=== PATIENT | male | born 1965 | race Caucasian/White ===

== ENCOUNTER 2018-12-30 | Outpatient (CLI) | payer BC | END 2018-12-30 23:59 | disposition home or self-care (01) | DX: I10 Essential (primary) hypertension (principal); R79.89 Other specified abnormal findings of blood chemistry; Z12.5 Encounter for screening for malignant neoplasm of prostate | CPT/HCPCS: 36415; 80053; 84153 ==

== ENCOUNTER 2019-01-01 | Outpatient (CLI) | payer BC | END 2019-01-01 23:59 | disposition home or self-care (01) | DX: R79.89 Other specified abnormal findings of blood chemistry (principal) | CPT/HCPCS: 36415; 80074 ==

== ENCOUNTER 2019-01-06 07:45 | Outpatient (CLI) | payer BC ==
--- NOTE | 2019-01-06 17:00 | Ultrasound Report ---
Reason: ELEVATED LFT'S Procedure Date: 01/06/2019 Accession Number: [id number] / [id number] Procedure: US - Abdomen Limited CPT Code: FULL RESULT: EXAM: ABDOMEN ULTRASOUND LIMITED, RUQ EXAM DATE: 01/06/2019 08:21 AM. CLINICAL HISTORY: Elevated LFTs. COMPARISON: CT 04/20/2012. TECHNIQUE: Real-time scanning was performed with static images obtained. FINDINGS: Liver: The liver parenchyma is moderately echogenic diffusely. A right hepatic calcification measures 1.2 cm as before. No enlargement. The right lobe measures 14.9 cm. Main portal vein flow: Hepatopetal. Gallbladder: Normal. No stones, wall thickening, or sonographic Godinez's sign. Biliary System: CBD measures 4 mm. No intrahepatic or extrahepatic ductal dilatation. Other: The right kidney measures 11.9 cm and shows no calculi or hydronephrosis. No ascites. IMPRESSION: 1. Moderately fatty infiltrated liver. 2. No change in 1.2 cm hepatic calcification, likely granuloma. 3. Normal gallbladder. RADIA
== END 2019-01-06 07:46 | disposition home or self-care (01) ==
LOC: DI 07:45
PROVIDERS: ATTEND Family Medicine
DX: K76.0 Fatty (change of) liver, not elsewhere classified (principal); K76.89 Other specified diseases of liver
CPT/HCPCS: 76705

== ENCOUNTER 2020-02-24 10:11 | Outpatient (CLI) | payer BC ==
[2020-02-24 11:50] LABS: BASOPHILS % (AUTO) 0.5 %; EOSINOPHILS # (AUTO) 0.1 10^3/uL (0.0-0.7); EOSINOPHILS % (AUTO) 1.7 %; HGB - HEMOGLOBIN 15.3 g/dL (14.0-18.0); LYMPHOCYTES # (AUTO) 1.1 10^3/uL (1.5-3.5); LYMPHOCYTES % (AUTO) 18.8 %; MEAN CORPUSCULAR HEMOGLOBIN 30.5 pg (27.0-31.0); MEAN CORPUSCULAR HGB CONC 34.2 g/dL (32.0-36.0); MEAN CORPUSCULAR VOLUME 89.2 fL (80.0-94.0); MEAN PLATELET VOLUME 11.2 fL (7.4-11.4); MONOCYTES # (AUTO) 0.5 10^3/uL (0.0-1.0); MONOCYTES % (AUTO) 8.3 %; NEUTROPHILS # (AUTO) 4.1 10^3/uL (1.5-6.6); NEUTROPHILS % (AUTO) 69.9 %; PLT - PLATELET COUNT 205 10^3/uL (130-450); RED BLOOD COUNT 5.01 10^6/uL (4.70-6.10); RED CELL DISTRIBUTION WIDTH 13.2 % (12.0-15.0); WHITE BLOOD COUNT 5.9 x10^3/uL (4.8-10.8)
[2020-02-24 12:14] LABS: ALBUMIN 4.3 g/dL (3.2-5.5); ALBUMIN/GLOBULIN RATIO 1.4 (1.0-2.2); ALKALINE PHOSPHATASE 71 IU/L (42-121); ALT ALANINE AMINOTRANSFERASE 17 IU/L (10-60); AST ASPARTATE AMINOTRANSFERASE 18 IU/L (10-42); BILIRUBIN,TOTAL 0.8 mg/dL (0.2-1.0); BUN - BLOOD UREA NITROGEN 16 mg/dL (6-20); CALCIUM 9.2 mg/dL (8.5-10.3); CARBON DIOXIDE - CO2 26 mmol/L (21-32); CHLORIDE 103 mmol/L (101-111); CHOL/HDL RATIO 4.4 (<5.0); CHOLESTEROL 214 mg/dL; CREATININE 0.8 mg/dL (0.6-1.2); GLUCOSE 110 mg/dL (70-100); HDL CHOLESTEROL 49 mg/dL; LDL CHOLESTEROL,CALCULATED 152 mg/dL; LDL/HDL RATIO 3.1 (<3.6); SODIUM 136 mmol/L (135-145); TOTAL PROTEIN 7.4 g/dL (6.7-8.2); VLDL CHOLESTEROL 13 mg/dL
[2020-02-24 12:39] LABS: HEMOGLOBIN A1c% 5.2 % (4.27-6.07)
== END 2020-02-24 23:59 | disposition home or self-care (01) ==
LOC: LAB.WCP 10:11
PROVIDERS: ATTEND Family Medicine
DX: R79.89 Other specified abnormal findings of blood chemistry (principal); R73.9 Hyperglycemia, unspecified; N40.0 Benign prostatic hyperplasia without lower urinary tract symptoms; I10 Essential (primary) hypertension; Z12.5 Encounter for screening for malignant neoplasm of prostate
CPT/HCPCS: 36415; 80053; 80061; 83036; 83721; 84153; 84443; 85025

== ENCOUNTER 2020-08-14 09:16 | Outpatient (CLI) | payer BC ==
[2020-08-14 14:40] LABS: BUN - BLOOD UREA NITROGEN 18 mg/dL (6-20); CALCIUM 9.5 mg/dL (8.5-10.3); CARBON DIOXIDE - CO2 25 mmol/L (21-32); CHLORIDE 103 mmol/L (101-111); CREATININE 0.8 mg/dL (0.6-1.2); GFR - MDRD 100 (>89); GLUCOSE 109 mg/dL (70-100); POTASSIUM 3.9 mmol/L (3.5-5.0); SODIUM 137 mmol/L (135-145)
[2020-08-14 14:41] LABS: CRP - C-REACTIVE PROTEIN < 1.0 mg/dL (0-1.0)
[2020-08-14 14:52] LABS: HCT - HEMATOCRIT 47.4 % (42.0-52.0); HGB - HEMOGLOBIN 16.1 g/dL (14.0-18.0); MEAN CORPUSCULAR HEMOGLOBIN 31.2 pg (27.0-31.0); MEAN CORPUSCULAR VOLUME 91.9 fL (80.0-94.0); MEAN PLATELET VOLUME 11.4 fL (7.4-11.4); RED BLOOD COUNT 5.16 10^6/uL (4.70-6.10); RED CELL DISTRIBUTION WIDTH 13.4 % (12.0-15.0); WHITE BLOOD COUNT 6.1 x10^3/uL (4.8-10.8)
[2020-08-14 15:14] LABS: RHEUMATOID FACTOR n (Negative)
[2020-08-16 12:27] LABS: ANA SCREEN NEGATIVE (NEGATIVE)
== END 2020-08-14 09:17 | disposition home or self-care (01) ==
LOC: LAB.S 09:16
PROVIDERS: ATTEND Family Medicine
DX: M79.646 Pain in unspecified finger(s) (principal); I10 Essential (primary) hypertension
CPT/HCPCS: 36415; 80048; 84550; 85025; 85027; 85651; 86038; 86140; 86430

== ENCOUNTER 2020-08-14 10:21 | Outpatient (CLI) | payer BC ==
--- NOTE | 2020-08-14 12:00 | XRAY Report ---
PROCEDURE: Hand 3 View BILAT INDICATIONS: THUMB JOINT PAIN TECHNIQUE: 6 views of the hand(s) acquired. COMPARISON: None. FINDINGS: On the right, scattered degenerative spurring and sclerosis.Posterior to exclude lucency seen at the DIP joint of the middle finger, PIP and DIP joint of the index finger, as well as the distal ulna. Tr iscaphe and first CMC mild joint degeneration. On the left, scattered degenerative spurring and sclerosis. Structure tubular lucency seen at the DIP joints of the index and middle finger as well as the distal ulna. There is distal radioulnar joint d egeneration. Mild triscaphe first CMC degenerative joint disease. Additional lucency projects in the first metacarpal head. IMPRESSION: Bilateral mild hand osteoarthritis. Bilateral juxta-articular lucencies at the interphalangeal joints, and distal ulna bilaterally, as ab ove raising possibility of erosions. Reviewed by: Donn Romo MD on 08/14/2020 11:59 AM PST Approved by: Donn Romo MD on 08/14/2020 11:59 AM PST Station ID: [id number]
== END 2020-08-14 10:22 | disposition home or self-care (01) ==
LOC: DI.S 10:21
PROVIDERS: ATTEND Family Medicine
DX: M19.042 Primary osteoarthritis, left hand (principal); M19.041 Primary osteoarthritis, right hand
CPT/HCPCS: 36415; 80048; 84550; 85025; 85027; 85651; 86038; 86140; 86430

== ENCOUNTER 2023-02-13 06:37 | Observation (INO) | payer BC ==
[2023-02-13] MEDS ORDERED: SODIUM CHLORIDE 0.9% 1,000 ML IV STA (07:28)
--- NOTE | 2023-02-13 07:50 | ED Physician Documentation ---
History of Present Illness - Stated complaint Stated Complaint: SYNCOPE - Chief complaint Chief Complaint: Cardiac - History obtained from History obtained from: Patient - Additonal information Additional information: The patient comes to the emergency department chief complaint of near-syncopal episodes this morning. He states that he woke up about an hour earlier than usual this morning and noticed that his heart felt as though he was racing. He did not check his heart rate to see how fast was actually going. He states it did not feel like an irregular sensation but just a fast or pounding sensation. He states he had a little bit of tightness in his left breast area at the same time. He states he also just felt slightly short of breath and "off". He went to get in the shower and get ready for work and suddenly, it felt as though he was going to faint. He states he has an established history of syncopal episodes and recognizes the feeling, so he was able to get down low and let the episode pass. The patient states that he finished his shower but after he got out of the shower, he had another episode like that. He was able to squat down again and again the episode passed without him having a complete syncopal episode. The patient decided to just go to work since he has occasionally had these episodes before, and while driving to work, felt the same feeling again. At that point, he decided to just come here. The patient states that when he had syncope in the past, he did have a work-up but States that nothing was found. He does note that he wore an event monitor at that time. He does not recall having any sense of racing or pounding heart with previous episodes. However, otherwise these episodes feel similar to what he had in the past. The patient states he does not feel ill per se but just feels like something is "off". He denies any history of thyroid disorders. He has a history of hypertension and states his blood pressure has been running high, but denies any recent dose or medication changes to his regimen. He was seen by the hand specialist yesterday and had a couple of cortisone injections in his hand. He denies any recent illness. No nausea or vomiting. He states that right now, he feels a little bit of the sensation of his heart racing. However, he does not feel faint at this time. He denies current dyspnea. The patient denies any recent stress. He states he was just on vacation for about 6 days and did drink a mix of beer and hard drinks each day. He states he does not feel that he went "overboard" with his drinking. No tremors. He states he drinks about 2 quarts of water a day, he would estimate. He drinks 1 cup of coffee and no other caffeinated or other energy drinks. No other complaints at this time. PD PAST MEDICAL HISTORY - Past Medical History Cardiovascular: Hypertension Respiratory: None Endocrine/Autoimmune: None GI: None : None HEENT: None Psych: None Musculoskeletal: None - Present Medications Home Medications: Ambulatory Orders Medication Instructions Recorded Confirmed lisinopriL [Lisinopril] 5 mg PO DAILY 04/17/16 02/13/23 Sertraline HCl 100 mg PO DAILY 02/13/23 02/13/23 - Allergies Allergies/Adverse Reactions: Allergies Allergy/AdvReac Type Severity Reaction Status Date / Time No Known Drug Allergies Allergy Verified 02/13/23 06:58 PD ED PE NORMAL - Vitals Vital signs reviewed: Yes - General General: Alert and oriented X 3, No acute distress, Well developed/nourished - HEENT HEENT: Atraumatic, PERRL, EOMI, Moist mucous membranes - Neck Neck: Supple, no meningeal sign - Cardiac Cardiac: RRR, No murmur, Strong equal pulses - Respiratory Respiratory: No respiratory distress, Clear bilaterally - Abdomen Abdomen: Soft, Non tender, Non distended - Derm Derm: Normal color, Warm and dry, No rash - Extremities Extremities: No deformity, No edema - Neuro Neuro: Alert and oriented X 3, manager custom 2-12 intact, Normal speech, Other (No gross deficits.) - Psych Psych: Normal mood, Normal affect Results - Vitals Vitals: Vital Signs - 24 hr 02/13/23 02/13/23 02/13/23 06:54 09:04 11:00 Temperature 36 C L Heart Rate 79 64 96 Respiratory 19 15 18 Rate Blood Pressure 185/118 H 174/102 H 123/76 O2 Saturation 98 98 94 02/13/23 02/13/23 02/13/23 12:44 12:45 12:46 Temperature Heart Rate 109 H 141 H 73 Respiratory 13 17 18 Rate Blood Pressure 156/95 H 180/120 H 153/97 H O2 Saturation 94 92 92 Oxygen O2 Source Room air - EKG (time done) 0651 EKG releavant findings:: EKG personally interpreted by author of this note. Relevant findings are: Rate: Rate (enter#) (76) Rhythm: NSR [place]: Normal Intervals: Normal [place] QRS: Normal Ischemia: Normal ST segments Compare to prior EKG: Old EKG unavailable Computer interpretation: Agree with computer 1041 EKG releavant findings:: EKG personally interpreted by author of this note. Relevant findings are: Rate: Rate (enter#) (148) Rhythm: Atrial flutter [place]: Normal Intervals: Normal [place] QRS: Normal Ischemia: Normal ST segments Compare to prior EKG: Changed from prior EKG Computer interpretation: Agree with computer - Labs Labs: Laboratory Tests 02/13/23 02/13/23 02/13/23 07:03 07:03 07:03 WBC RBC Hgb Hct MCV MCH MCHC RDW Plt Count MPV Neut # (Auto) Lymph # (Auto) [place] # (Auto) Eos # (Auto) Baso # (Auto) Absolute Nucleated RBC Nucleated RBC % PT INR Sodium Potassium Chloride Carbon Dioxide Anion Gap BUN Creatinine Estimated GFR (MDRD) Glucose Calcium Total Bilirubin AST ALT Alkaline Phosphatase Total Creatine Kinase 85 CK-MB (CK-2) 2.8 Troponin I High Sens 4.4 Total Protein Albumin Globulin Albumin/Globulin Ratio Lipase TSH 02/13/23 02/13/23 02/13/23 07:03 07:03 09:04 WBC 7.2 RBC 4.98 Hgb 16.2 Hct 45.0 MCV 90.4 MCH 32.5 H MCHC 36.0 RDW 12.2 Plt Count 165 MPV 10.6 Neut # (Auto) 5.7 Lymph # (Auto) 0.9 L [place] # (Auto) 0.5 Eos # (Auto) 0.1 Baso # (Auto) 0.0 Absolute Nucleated RBC 0.00 Nucleated RBC % 0.0 PT INR Sodium 137 Potassium 3.9 Chloride 105 Carbon Dioxide 22 Anion Gap 10.0 BUN 13 Creatinine 0.8 Estimated GFR (MDRD) 99 Glucose 128 H Calcium 9.2 Total Bilirubin 1.0 AST 42 ALT 36 Alkaline Phosphatase 74 Total Creatine Kinase CK-MB (CK-2) Troponin I High Sens 4.6 Total Protein 6.6 Albumin 4.2 Globulin 2.4 Albumin/Globulin Ratio 1.8 Lipase 26 TSH 2.51 02/13/23 12:49 WBC RBC Hgb Hct MCV MCH MCHC RDW Plt Count MPV Neut # (Auto) Lymph # (Auto) [place] # (Auto) Eos # (Auto) Baso # (Auto) Absolute Nucleated RBC Nucleated RBC % PT 11.4 INR 1.0 Sodium Potassium Chloride Carbon Dioxide Anion Gap BUN Creatinine Estimated GFR (MDRD) Glucose Calcium Total Bilirubin AST ALT Alkaline Phosphatase Total Creatine Kinase CK-MB (CK-2) Troponin I High Sens Total Protein Albumin Globulin Albumin/Globulin Ratio Lipase TSH PD Medical Decision Making - ED course Complexity details: reviewed results, re-evaluated patient, considered differential, d/w patient ED course: The patient was worked up in the emergency department with labs, as well as EKG, and given a liter of normal saline. He was in normal sinus rhythm with a rate in the 60s to 70s throughout his entire stay in the emergency department Until walking to the bathroom after 4 hours here. The patient reported that he felt as though his heart was racing again, and when he was placed back on the monitor, he was found to have irregular rhythm in the upper 140s. EKG showed atrial flutter with a 2-1 response. The patient persisted in atrial flutter with RVR for approximately 10 to 15 minutes during which time he briefly had 1 transition back to a normal sinus rhythm in the 60s. However, several seconds later he went back into atrial flutter. He was given IV diltiazem 25 mg and p.o. long-acting diltiazem 240 mg. He did initially become rate controlled and then actually converted back to normal sinus rhythm for a prolonged period of time with brief episodes of return to atrial fibs/flutter with variable rate. I did speak at length with the patient and his regarding the patient's condition. He was maintaining a normal to slightly elevated blood pressure, and given that he was responsive to spot doses of diltiazem and actually, repeatedly converted back to normal sinus rhythm on his own, I did not start a Cardizem drip at this time. I had already discussed the case with Dr. Arias, who has accepted the patient for admission. The patient was agreeable to this plan. The did pull me aside outside the room and reported that her is a "functional alcoholic" and that she has noticed a correlation in his symptoms with times that he drinks more. I have given the patient both IV and oral Ativan here in the emergency department. His laboratory studies are unremarkable. Plan is admit for observation to medical floor with telemetry, barring the need for a drip. - Critical Care Time(min): 30 Comments: Critical care time was necessary, due to high probability of imminent and life- threatening decline, secondary to excessively high heart rate, due to atrial flutter with rapid ventricular response. Time Includes: Direct patient care, Review records, Reassess patient, Document care, Coordinate care, Medical consult, Family consult for tx dec, See progress note Data interpretation: Labs, Pulse ox, Prior EKG, Cardiac output, See progress note Departure - Departure Disposition: ED Place in Observation Clinical Impression: Paroxysmal atrial flutter, Near syncope Condition: Serious
[2023-02-13 07:52] LABS: BASOPHILS % (AUTO) 0.3 %; EOSINOPHILS # (AUTO) 0.1 10^3/uL (0.0-0.7); EOSINOPHILS % (AUTO) 0.8 %; HGB - HEMOGLOBIN 16.2 g/dL (14.0-18.0); LYMPHOCYTES # (AUTO) 0.9 10^3/uL (1.5-3.5); LYMPHOCYTES % (AUTO) 12.8 %; MEAN CORPUSCULAR HEMOGLOBIN 32.5 pg (27.0-31.0); MEAN CORPUSCULAR VOLUME 90.4 fL (80.0-94.0); MEAN PLATELET VOLUME 10.6 fL (7.4-11.4); MONOCYTES # (AUTO) 0.5 10^3/uL (0.0-1.0); MONOCYTES % (AUTO) 7.1 %; NEUTROPHILS # (AUTO) 5.7 10^3/uL (1.5-6.6); NEUTROPHILS % (AUTO) 78.7 %; PLT - PLATELET COUNT 165 10^3/uL (130-450); RED BLOOD COUNT 4.98 10^6/uL (4.70-6.10); RED CELL DISTRIBUTION WIDTH 12.2 % (12.0-15.0); WHITE BLOOD COUNT 7.2 x10^3/uL (4.8-10.8)
[2023-02-13 08:13] LABS: ALBUMIN 4.2 g/dL (3.2-5.5); ALBUMIN/GLOBULIN RATIO 1.8 (1.0-2.2); CALCIUM 9.2 mg/dL (8.5-10.3); CREATININE 0.8 mg/dL (0.6-1.3); POTASSIUM 3.9 mmol/L (3.5-4.5); TOTAL PROTEIN 6.6 g/dL (6.4-8.9)
[2023-02-13 08:23] LABS: THYROID STIMULATING HORMONE 2.51 uIU/mL (0.34-5.60)
[2023-02-13] MEDS ORDERED: diltiaZEM INJ 5 MG/ML VIAL IVP STA ×2 (10:45→11:54)
[2023-02-13] MEDS ORDERED: diltiaZEM CD 120 MG CAPSULE PO STA (10:45)
[2023-02-13] MEDS ORDERED: LORazepam 1 MG TABLET PO STA (11:53)
[2023-02-13] MEDS ORDERED: LORazepam 2 MG/ML VIAL IVP STA (11:53)
[2023-02-13] MEDS ORDERED: ACETAMINOPHEN 325 MG TABLET PO PRN (12:36)
[2023-02-13] MEDS ORDERED: SODIUM CHLORIDE FLUSH 0.9% 10 ML SYRINGE IVP PRN (12:36)
[2023-02-13] MEDS ORDERED: ONDANSETRON 4 MG/2 ML VIAL IVP PRN (12:36)
[2023-02-13] MEDS ORDERED: LORazepam 2 MG/ML VIAL IVP PRN (12:38)
--- NOTE | 2023-02-13 12:47 | HISTORY & PHYSICAL EXAMINATION ---
Chief Complaint - Chief Complaint Chief Complaint: Near-syncope, paroxysmal Aflutter with RVR History of Present Illness - Admitted From Admitted From:: ED - History Obtained From History obtained from: ED provider, the patient is somnolent after receiving sedatives - History of Present Illness HPI Comment/Other: This is a 57-year-old male with history of hypertension on Lisinopril and on Sertaline for unknown Dx. He has a history of over 1 year of syncope and near-syncopal episodes. Work-up as an outpatient included an event monitor which caught no events. The most recent event was 1 month ago when he sensed presyncope, and that one was associated with palpitations for the first time, and it resolved spontaneously. Today he got the palpitations, they resolved, he then was in the shower and got palpitations again with near syncope, he squatted and felt better, was able to get out of the shower, then had symptoms again, which quickly stopped. He got in his car with plan to drive to work but got his palpitations with lightheadedness, while sitting behind the wheel of the car, and he drove himself to our ER. Work-up in the ER was unremarkable at first, with normal electrolytes and normal vital signs. On telemetry he was in sinus rhythm. He was watched for 4 hours, then was disconnected from telemetry to go to the bathroom and upon return while walking, he said he had his palpitations. He was hooked up back to the monitor and found that he was in atrial flutter with RVR, ventr rate was 140. An EKG was done and documented the atrial flutter. He was then given IV Cardizem 25 mg pushes x2 and a dose of p.o. Cardizem 240. He would break out of flutter and going to sinus but returned back to flutter. The ED provider then spoke to me about this patient. He will be placed in observation for managing paroxysmal a flutter with RVR which is causing him presyncope. Patient was recently on a 6-day trip in [place] and does admit to having a lot of alcohol. The pt's stepped out of the room to talk to the ED provider and the said that the patient is a "functional alcoholic, that he drinks all the time. History - Past Medical History Cardiovascular: reports: Hypertension Respiratory: reports: None Endocrine/Autoimmune: reports: None GI: reports: None : reports: None HEENT: reports: None Psych: reports: None Musculoskeletal: reports: None MRSA Hx?: No Other Past Medical History: reported to the ED provider (outside of the pa tient's room) that the patient is a "functional alcoholic" - Family & Social History Living arrangement: At home Living Situation: With spouse/s.o. Meds/Allgy - Home Medications Home Medications: Ambulatory Orders Medication Instructions Recorded Confirmed lisinopriL [Lisinopril] 5 mg PO DAILY 04/17/16 02/13/23 Sertraline HCl 100 mg PO DAILY 02/13/23 02/13/23 - Allergies Allergies/Adverse Reactions: Allergies Allergy/AdvReac Type Severity Reaction Status Date / Time No Known Drug Allergies Allergy Verified 02/13/23 06:58 Review of Systems - Cardiovascular Cariovascular: reports: Palpitations, Lightheadedness, Other (near syncope repeatedly) - All Other Systems All Other Systems: reports: Reviewed and negative Exam - Vital Signs Reviewed Vital Signs: Yes Vital Signs: Vital Signs x48h Temp Pulse Resp BP Pulse Ox 02/13/23 11:00 96 18 123/76 94 02/13/23 09:04 64 15 174/102 H 98 02/13/23 06:54 36 C L 79 19 185/118 H 98 - Physical Exam General Appearance: positive: No acute distress, Lethargic Eyes Bilateral: positive: Normal inspection ENT: positive: ENT inspection nml, No signs of dehydration Neck: positive: Nml inspection, No JVD Respiratory: positive: No respiratory distress, Breath sounds nml Cardiovascular: positive: No murmur Abdomen: positive: Non-tender, Nml bowel sounds, No distention Skin: positive: Warm, Dry Extremities: positive: Non-tender, No pedal edema Neurologic/Psychiatric: positive: Other (Asleep after sedatives given) Conclusion/Plan - Problem List (1) Near syncope Conclusion/Plan: The most recent events are associated with new palpitations. Today's typical symptom was caught on telemetry and shows a flutter with RVR. The patient had 2 troponins which were normal, TFTs which were normal. Likely etiology for the rapid a flutter is alcohol binge drinking ("holiday heart") Whether the previous episodes of syncope and near syncope, that were not associated with palpitations, can be ascribed to a flutter are not known. Plan: Place the patient in Observation for further evaluation and management of his symptoms Telemetry monitoring Orthostatic vital sign checks Continue meds for suppression of atrial flutter Echo ordered (2) Paroxysmal atrial flutter Conclusion/Plan: As above #1 Plan: We will continue with Cardizem CD 120 twice daily for suppression of atrial flutter We will start 1 baby aspirin daily His alcohol binging could be adding to atrial tachydysrhythmia, called "holiday heart", and he will be advised to curtail that Obtain an Echocardiogram to evaluate for structural heart disease>> The Echo has been completed and shows normal chamber sizes, normal LV contractility in fact he has hyperdynamic LV function with a mid cavity gradient of 11 mmHg. The signifies volume depletion. We will put him on it NS iv drip. (3) Alcohol use Conclusion/Plan: Patient is currently asleep and I cannot ascertain in detail and honestly how much he usually drinks. The did tell the ED provider that he drinks daily Plan: We will start a CIWA protocol with IV Ativan as needed Start Librium scheduled Put him on daily thiamine and vitamin When he is alert and oriented we will ask for social work consult - Lab Results Fish Bones: 02/13/23 07:03 02/13/23 07:03 - Diagnostic Imaging Results Diagnostic Imaging Results: positive: Final report reviewed
[2023-02-13 12:59] LABS: PT - PROTHROMBIN TIME 11.4 secs (9.9-12.6)
[2023-02-13] MEDS ORDERED: SODIUM CHLORIDE 0.9% 1,000 ML IV SCH (13:00)
[2023-02-13] MEDS ORDERED: chlordiazePOXIDE 5 MG CAPSULE PO PRN (13:38)
[2023-02-13] MEDS: THIAMINE 100 MG TABLET PO SCH (14:32)
[2023-02-13] MEDS: SODIUM CHLORIDE FLUSH 0.9% 10 ML SYRINGE IVP SCH (15:28)
[2023-02-13] MEDS: SODIUM CHLORIDE 0.9% 1,000 ML IV SCH (16:18)
--- NOTE | 2023-02-13 18:09 | PHARMACY PROGRESS NOTE ---
- Best Possible Medication History Admit Date and Time: 02/13/23 1324 Processed by: Pharmacy Medication History completed: Yes Patient Interview: Pt unable to participate (Pt sleeping both times I went to do medrec. Hence, Medrec done using insurance records and pharmacy fills.) Secondary Source(s): Insurance records As the person ultimately responsible for medication therapy, providers are able to order a medication from an existing home medication list in [facility] via the "Reconcile Routine" prior to Confirmation of that medication by business support coordinator. Such practice is discouraged except when the physician, in their clinical judgment, deems that a medical need exists for a medication without regard to previous use.
[2023-02-14] MEDS: SODIUM CHLORIDE FLUSH 0.9% 10 ML SYRINGE IVP SCH ×2 (00:20→08:28)
[2023-02-14] MEDS: SODIUM CHLORIDE 0.9% 1,000 ML IV SCH (01:12)
[2023-02-14 05:30] LABS: ALBUMIN 3.6 g/dL (3.2-5.5); BILIRUBIN,DIRECT 0.16 mg/dL (0.03-0.18); BILIRUBIN,TOTAL 0.8 mg/dL (0.2-1.0); CALCIUM 8.4 mg/dL (8.5-10.3); CREATININE 0.8 mg/dL (0.6-1.3); MAGNESIUM 1.8 mg/dL (1.7-2.3); PHOSPHORUS 2.8 mg/dL (2.5-5.0); POTASSIUM 3.7 mmol/L (3.5-4.5); TOTAL PROTEIN 5.7 g/dL (6.4-8.9)
[2023-02-14] MEDS ORDERED: SODIUM CHLORIDE 0.9% 1,000 ML IV SCH (07:36)
--- NOTE | 2023-02-14 07:43 | Discharge Plan ---
Discharge Plan Problem Reviewed?: Yes Disposition: Home, Self Care Condition: Stable Prescriptions: diltiaZEM CD [Cardizem Cd] 240 mg PO DAILY #30 cap Aspirin EC [Ecotrin] 81 mg PO DAILY #30 tablet Thiamine [Vitamin B-1] 100 mg PO DAILY #30 tab Diet: Low Sodium Activity Restrictions: Activity as Tolerated Shower Restrictions: No Driving Restrictions: No Instruction Topics: AFL/Afib Health Concerns: You were hospitalized to manage a very rapid heart rate, which is likely what makes you get dizzy and nearly faint. The rhythm is called atrial flutter (Aflutter). You were checked to see why you have atrial flutter, and for you it is probably caused by alcohol binge drinking. Your medicines have now been changed: Please stop taking the Lisinopril and start taking Cardizem CD, which will treat both high blood pressure and suppress the fast heart rate of atrial flutter when you go back into that rhythm. Having atrial fib or atrial flutter gives you a higher risk for having a stroke. Therefore it is advised that you now take 1 baby aspirin daily, for stroke prevention. Also, you should decrease your alcohol intake. You were on a medicine here to prevent alcohol withdrawal. You were seen by the social media job titles and offered resources to help you decrease your alcohol use. Also, you have been prescribed Thiamine vitamin to take daily, which helps prevent the complications of alcohol use. The new prescriptions were electronically sent to the [facility] in [place]. Since you have had fainting or near-fainting for over a year, you may have another reason for those symptoms and not just the atrial flutter. If you have continued spells of blacking out despite having a good heart rate, controlled on the Cardizem CD, you need more evaluation for causes of fainting. You would then need to be referred to a Dredge Pumper and/or a Neurologist. This recommendation will be in the hospital summary that goes to your Primary Care Provider. Plan of Treatment: As above. Care Goals: Improvement in symptoms and stabilization are the goals. Assessment: The patient understands and is agreeable with the plan. Additional Instructions or Follow Up instructions: Please establish care with a new PCP. If you have new or worsening symptoms, call your PCP for advice, or come to the ER. If your symptoms are lightheadedness or feeling nearly-faint, DO NOT BE DRIVING A CAR or operating heavy machinery. No Smoking: If you smoke, Please STOP! Call for help.
[2023-02-14] MEDS: THIAMINE 100 MG TABLET PO SCH (08:27)
[2023-02-14] MEDS ORDERED: PRENATAL VITAMIN TABLET PO SCH (09:00)
[2023-02-14] MEDS ORDERED: SERTRALINE 50 MG TABLET PO SCH (09:00)
[2023-02-14] MEDS ORDERED: diltiaZEM CD 240 MG CAPSULE PO SCH (09:00)
[2023-02-14] MEDS ORDERED: lisinopriL 5 MG TABLET PO SCH (09:00)
[2023-02-14] MEDS ORDERED: ENOXAPARIN 40 MG/0.4 ML SYRINGE SUBQ SCH (09:00)
[2023-02-14 09:08] VITALS: BP 145/86; O2SAT 95
--- NOTE | 2023-02-14 09:31 | DISCHARGE SUMMARY ---
Discharge Summary Admit Date: 02/13/23 Discharge Date: 02/14/23 Discharging Provider: Dr Destiny Arias Primary Care Provider: None Condition at Discharge: Stable Discharge Disposition: 01 Home, Self Care - HPI History of Present Illness: This is a 57-year-old male with history of hypertension on Lisinopril and on Sertaline for unknown Dx. He has a history of over 1 year of syncope and near- syncopal episodes. Work-up as an outpatient included an event monitor which caught no events. The most recent event was 1 month ago when he sensed presyncope, and that one was associated with palpitations for the first time, and it resolved spontaneously. Today he got the palpitations, they resolved, he then was in the shower and got palpitations again with near syncope, he squatted and felt better, was able to get out of the shower, then had symptoms again, which quickly stopped. He got in his car with plan to drive to work but got his palpitations with lightheadedness, while sitting behind the wheel of the car, and he drove himself to our ER. Work-up in the ER was unremarkable at first, with normal electrolytes and normal vital signs. On telemetry he was in sinus rhythm. He was watched for 4 hours, then was disconnected from telemetry to go to the bathroom and upon return while walking, he said he had his palpitations. He was hooked up back to the monitor and found that he was in atrial flutter with RVR, ventr rate was 140. An EKG was done and documented the atrial flutter. He was then given IV Cardizem 25 mg pushes x2 and a dose of p.o. Cardizem 240. He would break out of flutter and going to sinus but returned back to flutter. The ED provider then spoke to me about this patient. He will be placed in observation for managing paroxysmal a flutter with RVR which is causing him presyncope. Patient was recently on a 6-day trip in [place] and does admit to having a lot of alcohol. The pt's stepped out of the room to talk to the ED provider and the said that the patient is a "functional alcoholic, that he drinks all the time. - HOSPITAL COURSE Hospital Course: (1) Near syncope The most recent events were definitely associated with new palpitations and his typical symptom recurred and telemetry showed atrial flutter with RVR. Likely etiology for his rapid Aflutter is alcohol binge drinking ("holiday heart"). Orthostatic vital signs were checked, when he was in normal rhythm, and these were WNL. An Echocardiogram was done to evaluate for structural heart disease, and it showed normal chamber sizes, and normal LV and RV contractility. In fact he has hyperdynamic LV function with a mid cavity gradient of 11 mmHg. The signifies volume depletion. We was put on iv NS while here. Whether the previous episodes of syncope and near syncope, that were not associated with palpitations, can be ascribed to atrial flutter, is not known and a referral to Cardiology and/or Neurology was advised. (2) Paroxysmal atrial flutter He had 2 troponins which were normal, and TFTs which were normal. Likely etiology for his rapid atrial flutter is alcohol binge drinking ("holiday heart"). We continued Cardizem CD and he was discharged on 240 mg po daily, for suppression of atrial flutter. He was told to start using 1 baby aspirin daily. He was educated about alcohol binging adding to atrial tachydysrhythmia, and he was advised to curtail alcohol use. (3) Alcohol use We will start a CIWA protocol with IV Ativan as needed Start Librium scheduled Put him on daily thiamine and vitamin When he is alert and oriented we will ask for social work consult (4) HTN On his new Cardizem CD 240 mg daily, he was told to stop using the daily Lisinopril. - ALLERGIES Allergies/Adverse Reactions: Allergies Allergy/AdvReac Type Severity Reaction Status Date / Time No Known Drug Allergies Allergy Verified 02/13/23 06:58 - MEDICATIONS Home Medications: Ambulatory Orders Medication Instructions Recorded Confirmed Sertraline HCl 100 mg PO DAILY 02/13/23 02/13/23 Aspirin EC [Ecotrin] 81 mg PO DAILY #30 tablet 02/14/23 Thiamine [Vitamin B-1] 100 mg PO DAILY #30 tab 02/14/23 diltiaZEM CD [Cardizem Cd] 240 mg PO DAILY #30 cap 02/14/23 - PHYSICAL EXAM AT DISCHARGE General Appearance: positive: No acute distress, Alert Eyes Bilateral: positive: Normal inspection, EOMI ENT: positive: ENT inspection nml, No signs of dehydration Neck: positive: Nml inspection, No JVD Respiratory: positive: No respiratory distress, Breath sounds nml Cardiovascular: positive: Regular rate & rhythm, No murmur Abdomen: positive: Non-tender, No organomegaly, Nml bowel sounds, No distention Skin: positive: Warm, Dry Extremities: positive: Non-tender, No pedal edema Neurologic/Psychiatric: positive: Oriented x3, Motor nml, Other (No tremor) - LABS Result Diagrams: 02/13/23 07:03 02/14/23 04:52 - TIME SPENT Time Spent in Discharge (Minutes): 25
== END 2023-02-14 11:00 | disposition home or self-care (01) ==
LOC: ED 06:37 → MS2 13:24
PROVIDERS: ADMIT Internal Medicine; ATTEND Internal Medicine
DX: I48.92 Unspecified atrial flutter (principal); R55 Syncope and collapse; I10 Essential (primary) hypertension; Z79.899 Other long term (current) drug therapy
CPT/HCPCS: 36415; 80048; 80053; 80076; 82550; 82553; 83690; 83735; 84100; 84443; 84484; 85025; 85610; 93005; 93306; 96361; 96372; 96374; 96376; 99291; A9270; G0378; J1650; J2060; J8499

== ENCOUNTER 2023-07-14 10:45 | Outpatient (CLI) | payer BC ==
[2023-07-14 14:42] LABS: BASOPHILS % (AUTO) 0.5 %; EOSINOPHILS # (AUTO) 0.1 10^3/uL (0.0-0.7); EOSINOPHILS % (AUTO) 0.8 %; HCT - HEMATOCRIT 43.9 % (42.0-52.0); HGB - HEMOGLOBIN 15.2 g/dL (14.0-18.0); LYMPHOCYTES # (AUTO) 1.2 10^3/uL (1.5-3.5); LYMPHOCYTES % (AUTO) 20.6 %; MEAN CORPUSCULAR HEMOGLOBIN 32.9 pg (27.0-31.0); MEAN CORPUSCULAR HGB CONC 34.6 g/dL (32.0-36.0); MEAN PLATELET VOLUME 11.1 fL (7.4-11.4); MONOCYTES # (AUTO) 0.6 10^3/uL (0.0-1.0); MONOCYTES % (AUTO) 9.7 %; NEUTROPHILS # (AUTO) 4.1 10^3/uL (1.5-6.6); NEUTROPHILS % (AUTO) 67.9 %; PLT - PLATELET COUNT 166 10^3/uL (130-450); RED BLOOD COUNT 4.62 10^6/uL (4.70-6.10); RED CELL DISTRIBUTION WIDTH 13.1 % (12.0-15.0)
[2023-07-14 14:49] LABS: PT - PROTHROMBIN TIME 10.7 secs (9.9-12.6)
== END 2023-07-14 10:46 | disposition home or self-care (01) ==
LOC: LAB.S 10:45
PROVIDERS: ATTEND Internal Medicine
DX: I48.3 Typical atrial flutter (principal)
CPT/HCPCS: 36415; 85025; 85610